=== PATIENT | female | born 1940 | race Caucasian/White ===

== ENCOUNTER 2019-10-12 05:13 | Inpatient (IN) ==
[2019-10-05 09:53] LABS: BASO# 0.04 X1000 (0.0-0.2); BASO% 0.8 % (0.0-0.8); EOS# 0.07 X1000 (0.0-0.7); EOS% 1.4 % (0.0-10.0); HEMATOCRIT 42.4 % (37.0-47.0); HEMOGLOBIN 13.4 g/dL (12.0-16.0); LYMPH# 1.46 X1000 (1.2-3.4); LYMPH% 29.7 % (20.5-51.1); MCH 28.7 PG (27-31); MCHC 31.6 g/dL (33-37); MCV 90.8 FL (81-99); MONO% 10.2 % (1.7-9.3); MPV 12.3 FL (7.4-10.4); NEUT# 2.84 X1000 (1.4-6.5); NEUT% 57.9 % (42.2-75.2); PLT 174 X1000 (130-400); RBC 4.67 XMIL (4.2-5.4); RDW 13.5 % (11.5-14.5); WBC 4.91 X1000 (4.8-10.8)
[2019-10-05 10:17] LABS: AGAP 9; BUN 20 mg/dL (8-22); CALCIUM 9.7 mg/dL (8.8-10.2); CHLORIDE 103 mmol/L (98-107); COSMO 282; CREATININE 0.7 mg/dL (0.5-0.9); ESTIMATED GFR > 60; GLUCOSE 64 mg/dL (70-104); POTASSIUM 4.2 mmol/L (3.5-5.1); SODIUM 141 mmol/L (136-145); TCO2 29 mmol/L (25-35)
--- NOTE | 2019-10-11 16:06 | HISTORY AND PHYSICAL ---
PREOPERATIVE HISTORY AND PHYSICAL: Date of surgery is 10/12/2019. HISTORY: The patient is a 79-year-old female who has been followed by Dr. Ernesto River for many years. She has been having increasing problems of incomplete bladder emptying and leaking urine all the time. The patient has had a sling [place] [address] Alex. She has also been evaluated by Dr. Jax Matias, Dr. Yazan [place] and Dr. Chris Raya. She has not been placed on any medication. She is not sexually active. She splinting for urination by leaning forward and she is double voiding. She is not having any postvoid dribble. She is pattern voiding every hour and is voiding 15 to 19 times per day. The patient on examination is found to have advanced stage prolapse and she is admitted at this time for definitive surgical correction after our month or 2 of pessary use. 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 PAST SURGICAL HISTORY: Positive for mid urethral sling, vaginal hysterectomy, 2 anterior compartment defect repairs and 1 posterior compartment defect repair. She is noted to be a para 3- 0-0-3. ALLERGIES: Penicillin. CURRENT MEDICATIONS: Xarelto 20, MiraLAX, estradiol 0.1 mg cream, and p.r.n. medications. FAMILY HISTORY: Positive for breast cancer in her mother. SOCIAL HISTORY: Negative for tobacco, ETOH, or drugs. PHYSICAL EXAMINATION: GENERAL: BMI is noted to be 22. HEENT: Normocephalic, atraumatic. PERRLA. EOMI. No thyromegaly. CARDIOVASCULAR: Regular rate and rhythm without murmur, gallop, or rub. PULMONARY: Clear to auscultation and percussion. ABDOMEN: Soft. GENITOURINARY: Shows stage 3 prolapse. The leading edge is AB at +4. She has reversed kinking of the urethra seen. All of her defect is anterior apical. However, she is not sexually active and the anterior compartment is already somewhat shortened from her prior surgical corrections. NEUROLOGIC: Afocal. EXTREMITIES: Without clubbing, cyanosis, or edema. ASSESSMENT AND PLAN: Patient with advanced stage prolapse and failure of 3 [place] tissue repair. She is having urinary retention and recurring incontinence and urinary tract infection. She is admitted now for an obliterative procedure and revision of mid urethral sling. The risks and benefits of this were explained at length. She understands and is wishing to proceed. cc: Doron Summers MD
[2019-10-12] MEDS ORDERED: LR 1,000 ML ONE ×2 (05:37→08:48)
[2019-10-12] MEDS ORDERED: CLINDAMYCIN 900 MG/D5W 900 MG/50 ML IVPB ONE (05:37)
[2019-10-12] MEDS ORDERED: GENTAMICIN 80 MG/NS 80 MG/50 ML IVPB ONE (05:37)
[2019-10-12] MEDS ORDERED: FENTANYL ONE (05:59)
[2019-10-12] MEDS ORDERED: XYLOCAINE-MPF 2% ONE (05:59)
[2019-10-12] MEDS ORDERED: DIPRIVAN 1% ONE (05:59)
[2019-10-12] MEDS ORDERED: SENSORCAINE 0.25%/EPI 1:200,000 ONE (06:29)
[2019-10-12] MEDS ORDERED: SODIUM CHLORIDE 0.9% ONE (06:29)
[2019-10-12] MEDS ORDERED: METROGEL-VAGINAL 0.75% GEL ONE (06:29)
[2019-10-12] MEDS ORDERED: D10W 500 ML ONE (06:30)
--- NOTE | 2019-10-12 06:40 | H&P REVIEW ---
H&P Update H&P Review: H&P was reviewed and patient was examined, No change has occurred in the patient's condition
[2019-10-12] MEDS ORDERED: ZOFRAN ONE (06:54)
[2019-10-12] MEDS ORDERED: DECADRON ONE (06:54)
[2019-10-12] MEDS ORDERED: TORADOL ONE (08:21)
[2019-10-12 08:32] LABS: URINE SOURCE CATH
[2019-10-12 08:39] LABS: BILIRUBIN URINE NEGATIVE (NEGATIVE); BLOOD URINE NEGATIVE (NEGATIVE); COLOR YELLOW; GLUCOSE URINE NEGATIVE (NEGATIVE); KETONE URINE NEGATIVE (NEGATIVE); LEUKOCYTES URINE NEGATIVE (NEGATIVE); NITRITE URINE NEGATIVE (NEGATIVE); PH URINE 6.5; PROTEIN URINE NEGATIVE (NEGATIVE); SP GRAVITY URINE 1.015; TURBIDITY URINE CLEAR (CLEAR); UROBILINOGEN URINE NORMAL (NORMAL)
[2019-10-12 08:40] LABS: UR EPITHELIAL CELLS <10 /HPF (<10); URINE BACTERIA NEGATIVE /HPF; URINE RBC <10 /HPF (<10); URINE WBC <10 /HPF (<10)
--- NOTE | 2019-10-12 09:05 | OPERATIVE NOTE ---
PROCEDURE DATE: 10/12/2019 PREOPERATIVE DIAGNOSIS: Symptomatic pelvic organ prolapse, recurrent. POSTOPERATIVE DIAGNOSIS: Symptomatic pelvic organ prolapse, recurrent, multiple bladder stones. PROCEDURE: Colpectomy, bladder stone extraction. SURGEON: Doron Summers MD. ANESTHESIA: General. ESTIMATED BLOOD LOSS: 30-40 mL. HISTORY: The patient is a 79-year-old female, who has had multiple [place] tissue repairs and having recurrence that is apical and anterior in nature. She has had problems with incontinence and seemed to have almost an obstructive picture when she underwent urodynamics. Decision was made to proceed with an obliterative procedure and not perform a sling, hoping that the bladder angle change would allow her to void better. OPERATIVE FINDINGS: The patient is found to have stage III prolapse and a large collection of stones in the base of the bladder above the trigone. OPERATIVE PROCEDURE: Patient taken to operating room and placed in supine position after adequate general anesthesia obtained. She is placed in candy cane stirrups. The vagina and perineum were prepped and draped in the usual fashion. Large defect was identified and grasped with Allis clamps at the vaginal cuff angles. We then did a hydrodissection in the anterior compartment with 0.25% Marcaine with epinephrine diluted 50% with normal saline. We then used a scalpel to demarcate the anterior quadrants, and then we removed the 2 anterior quadrants of vaginal mucosa throughout. We turned our attention towards the posterior compartment in a similar fashion, demarcated our 2 quadrants, and then used sharp and blunt dissection to remove the vaginal mucosa from the posterior quadrants of the vagina. Upon doing this, we then began with our pursestring suturing. We used a 2.0 Vicryl ligature in a pursestring fashion in approximately 15 to 20 levels to imbricate the apex and the anterior and posterior crabtree. Upon doing this, this then lowered the urethrovesical neck and raised the distal posterior portion. Upon doing this, we then closed anterior to posterior what little bit of vaginal mucosa was noted remaining on the perineal body, as well as the urethra at the UV neck. We did this with interrupted 0 Vicryl ligatures. Upon doing this, we then introduced a cystoscope and filled the bladder approximately 250 mL of D 10. Both ureters were effluxing urine and appeared to be within normal limits. However, we found a large collection of stones probably 50 to 60 that were sitting in the base of the bladder. Several of them were larger, but most of them were small. Consulted with Urology who is busy in another room; they suggest trying to wash them out. So we spent approximately 20 minutes at that time, then doing repeated washings trying to remove the stones as best we could. We removed probably 80% of the stones and then made the decision to stop that portion leaving a few, probably 10 to 15 stones, still sitting in there that were small. Hopefully with a change in the anatomy, she will be able to void these better. After completion of this, Lane catheter was placed. Sponge count, instrument count, needle count were correct x3. [facility], awakened and taken to the recovery room with vital signs stable. cc: Doron Summers MD
[2019-10-12] MEDS ORDERED: PERIDEX MT SCH (09:16)
[2019-10-12] MEDS ORDERED: CRESTOR PO SCH (09:16)
[2019-10-12] MEDS ORDERED: NORCO-5 PO PRN (09:16)
[2019-10-12] MEDS ORDERED: LR 1,000 ML IV SCH (09:16)
[2019-10-12] MEDS ORDERED: COLACE PO SCH (09:16)
--- NOTE | 2019-10-12 13:19 | PROGRESS NOTE ---
DATE: 10/12/2019 HISTORY: The patient is now approximately 3 to 4 hours postop from the [place] colpocleisis and removal of bladder stones. I have reviewed the operative course with the patient, and discussed the postoperative care. She is afebrile. Vital signs are stable. We will plan on discharge in the morning. cc: Doron Summers MD
[2019-10-12] MEDS ORDERED: TORADOL IV SCH (14:51)
[2019-10-12 16:02] VITALS: BP 120/66
--- NOTE | 2019-10-12 21:00 | DISCHARGE SUMMARY ---
ADMISSION DATE: 10/12/2019 DISCHARGE DATE: 10/12/2019 SUBJECTIVE: Patient is feeling very well. When I was rounding on her, she and her family really would like to go home. She is not having any pain and is doing well. I discussed, as noted before, her operative findings and the fact that we did not place a sling and did not have to revise that area, is certainly compatible with having minimal pain. ASSESSMENT AND PLAN: Discharge patient home. DISCHARGE MEDICATIONS: [place] 5. The patient was instructed to return to clinic in 3 weeks. cc: Doron Summers MD
== END 2019-10-12 16:47 | disposition home or self-care (01) | DRG 748 ==
LOC: SURHOLD 05:13 → 4N 07:36
PROVIDERS: ADMIT Obstetrics & Gynecology; ATTEND Obstetrics & Gynecology